=== PATIENT | female | born 1965 | race Caucasian/White ===

== ENCOUNTER 2023-03-08 08:15 | Day surgery (SDC) | payer BC ==
[2023-03-08] MEDS ORDERED: Ringers Lactate 1,000 ML IV ONE (08:46)
[2023-03-08 09:01] LABS: Potassium 4.1 mEq/L (3.5-5.1)
[2023-03-08] MEDS ORDERED: LIDOCAINE 1% MPF 2 ML AMPULE ONE (09:50)
[2023-03-08] MEDS ORDERED: propofoL 200 MG/20 ML VIAL IV ONE ×2 (09:50)
[2023-03-08 10:58] VITALS: BP 104/73; TEMP 97; O2SAT 98
--- NOTE | 2023-03-10 15:34 | EKG ---
Test Date: 2023-03-08 Test Time: 08:24:31 Supply Chain Director: REBECCA MEASUREMENT RESULTS: Intervals: Rate: 62 W[place]: 128 QRSD: 84 QT: 412 QTc: 418 [place]: P: 34 WY: 128 QRS: 49 T: 47 INTERPRETIVE STATEMENTS: Normal sinus rhythm Normal ECG No previous ECG available for comparison Electronically Signed On 03-10-23 15:31:01 CDT by Kvng Pemberton
== END 2023-03-08 10:45 | disposition home or self-care (01) ==
LOC: OR 08:15
PROVIDERS: ATTEND Surgery
PROC: 0DBN8ZX Excision of Sigmoid Colon, Via Natural or Artificial Opening Endoscopic, Diagnostic (ICD-10-PCS; principal; 2023-03-08 10:00)
DX: Z12.11 Encounter for screening for malignant neoplasm of colon (principal); K63.5 Polyp of colon; K57.30 Diverticulosis of large intestine without perforation or abscess without bleeding; K64.8 Other hemorrhoids
CPT/HCPCS: 93005; 80048; 36415; 88305; 45380; J2704 ×2; J7120